=== PATIENT | male | born 1960 | race Two or more races ===

== ENCOUNTER 2023-07-02 11:12 | Inpatient (IN) | payer MEDICAID, OTHER ==
[~2023-07-02] VITALS: Ht 165.1 cm; Wt 97.5 kg
[2023-07-02] MEDS ORDERED: RISP4TAB73 PO (11:34)
[2023-07-02] MEDS ORDERED: CLON-595 PO (11:34)
[2023-07-02] MEDS ORDERED: BENZ0.5T49 PO (11:34)
[2023-07-02] MEDS ORDERED: AMOX1TAB16 PO (11:34)
[2023-07-02] MEDS ORDERED: SULF-261 PO (11:34)
[2023-07-02] MEDS ORDERED: ATOR20TA PO (11:34)
[2023-07-02] MEDS ORDERED: RISP2TAB86 PO (11:34)
[2023-07-02] MEDS ORDERED: TRAZ-252 PO (11:34)
[2023-07-02 12:52] LABS: BASOPHILS % (AUTO) 0.6 % (0.0-2.0); EOSINOPHILS % (AUTO) 1.6 % (1.0-6.0); HEMATOCRIT 45.1 % (41-53); HEMOGLOBIN 15.3 g/dL (13.5-17.5); LYMPHOCYTES # (AUTO) 1.1 K/uL (1.0-4.8); LYMPHOCYTES % (AUTO) 15.3 % (22.0-44.0); MEAN CORPUSCULAR HEMOGLOBIN 28.2 pg (26.0-34.0); MEAN CORPUSCULAR VOLUME 83 fL (80-100); MONOCYTES # (AUTO) 0.5 K/uL (0.1-1.0); MONOCYTES % (AUTO) 7.2 % (2.0-9.0); NEUTROPHILS # (AUTO) 5.4 K/uL (1.8-7.7); NEUTROPHILS % (AUTO) 75.3 % (40.0-70.0); PLATELET COUNT (AUTO) 187 K/uL (150-450); RED BLOOD CELL COUNT(AUTO) 5.45 MIL/uL (4.50-5.90); RED CELL DISTRIBUTION WIDTH 14.5 % (11.5-14.5)
[2023-07-02 13:00] LABS: ANION GAP 13 mmol/L (8-16); CARBON DIOXIDE 22 mmol/L (22-29); CHLORIDE 103 mmol/L (98-107); CREATININE 1.06 mg/dL (0.60-1.30); GLOMERULAR FILTR. RATE CALC > 60 mL/min (>60); GLUCOSE,RANDOM 112 mg/dL (70-110); POTASSIUM 4.4 mmol/L (3.5-5.1); SODIUM SERUM 138 mmol/L (136-145)
[2023-07-02 13:06] LABS: ALANINE AMINOTRANSFERASE 33 U/L (12-78); ALBUMIN 3.7 g/dL (3.4-5.0); ALKALINE PHOSPHATASE 82 U/L (46-116); ASPARTATE AMINOTRANSFERASE 32 U/L (15-37); BILIRUBIN,TOTAL 0.6 mg/dL (0.1-1.0); TOTAL PROTEIN, SERUM 7.6 g/dL (6.4-8.2)
[2023-07-02 14:35] LABS: COVID AG,FIA SOURCE NASAL SWAB
[2023-07-02] MEDS ORDERED: ZOLPIDEM TARTRATE 10 MG TABLET PO PRN (15:30)
[2023-07-02] MEDS: LORazepam 2 MG TABLET PO PRN (21:32)
[2023-07-02] MEDS: HALOPERIDOL 5 MG TABLET PO PRN (21:33)
[2023-07-02 22:58] VITALS: BP 125/61; PULSE 79; RESP 19; TEMP 97.8; O2SAT 100
[2023-07-03] MEDS ORDERED: MAGNESIUM HYDROXIDE SUSPENSION 30 ML UDCUP PO PRN (07:30)
[2023-07-03] MEDS ORDERED: ALBUTEROL SULFATE HFA 90 MCG/PUFF 8 GM INHALER IH PRN (07:30)
[2023-07-03] MEDS ORDERED: PETROLATUM,WHITE 28 GM JELLY TP PRN (07:30)
[2023-07-03] MEDS ORDERED: NICOTINE 14 MG/24 HOUR PATCH TD PRN (07:30)
[2023-07-03] MEDS ORDERED: GuaiFENesin/D-METHORPHAN [SUGAR-FREE] 200-20MG/10 ML SYRUP UDCUP PO PRN (07:30)
[2023-07-03] MEDS ORDERED: ONDANSETRON HCL 4 MG TABLET PO PRN (07:30)
[2023-07-03] MEDS ORDERED: DOCUSATE SODIUM 100 MG CAPSULE PO PRN (07:30)
[2023-07-03] MEDS ORDERED: LOPERAMIDE HCL 2 MG CAPSULE PO PRN (07:30)
[2023-07-03] MEDS ORDERED: ACETAMINOPHEN 325 MG TABLET PO PRN (07:30)
[2023-07-03] MEDS ORDERED: MAG HYDROX/AL HYDROX/SIMETH ES 30 ML SUSPENSION UDCUP PO PRN (07:30)
[2023-07-03] MEDS ORDERED: CloNIDine HCL 0.1 MG TABLET PO PRN (07:30)
[2023-07-03] MEDS ORDERED: IBUPROFEN 400 MG TABLET PO PRN (07:30)
[2023-07-03] MEDS: BACITRACIN 28 GM OINTMENT TP SCH ×2 (08:56→16:18)
[2023-07-03 09:33] VITALS: BP 133/79; PULSE 72; RESP 18; TEMP 97.6
[2023-07-03] MEDS: RisperiDONE 1 MG TABLET PO SCH (16:19)
[2023-07-03] MEDS: TraZODone HCL 100 MG TABLET PO SCH (21:43)
[2023-07-03] MEDS: ATORVASTATIN CALCIUM 20 MG TABLET PO SCH (21:43)
[2023-07-03 22:55] VITALS: BP 123/73; PULSE 60; RESP 18; TEMP 97.7; O2SAT 95
[2023-07-04 08:56] LABS: HEMOGLOBIN A1C 6.1 % (3.8-5.6)
[2023-07-04] MEDS: BACITRACIN 28 GM OINTMENT TP SCH ×2 (09:00→16:31)
[2023-07-04 09:10] LABS: THYROID STIMULATING HORMONE 1.8 uIU/mL (0.36-3.74)
[2023-07-04 09:23] VITALS: BP 127/83; PULSE 55; RESP 18; TEMP 96.9; O2SAT 99
[2023-07-04] MEDS: RisperiDONE 1 MG TABLET PO SCH ×2 (10:18→16:31)
[2023-07-04] MEDS: BENZTROPINE MESYLATE 0.5 MG TABLET PO SCH (10:18)
[2023-07-04 20:18] VITALS: BP 141/85; PULSE 65; RESP 18; TEMP 97.6; O2SAT 96
[2023-07-04] MEDS: TraZODone HCL 100 MG TABLET PO SCH (20:54)
[2023-07-04] MEDS: ATORVASTATIN CALCIUM 20 MG TABLET PO SCH (20:54)
[2023-07-05] MEDS: RisperiDONE 1 MG TABLET PO SCH ×2 (08:45→16:17)
[2023-07-05] MEDS: BENZTROPINE MESYLATE 0.5 MG TABLET PO SCH (08:45)
[2023-07-05] MEDS: BACITRACIN 28 GM OINTMENT TP SCH ×2 (08:45→16:17)
[2023-07-05 09:34] VITALS: BP 150/86; PULSE 75; RESP 18; TEMP 97.7; O2SAT 97
[2023-07-05] MEDS: TraZODone HCL 100 MG TABLET PO SCH (21:00)
[2023-07-05] MEDS: ATORVASTATIN CALCIUM 20 MG TABLET PO SCH (21:00)
[2023-07-05 22:48] VITALS: BP 123/71; PULSE 68; RESP 18; TEMP 97.7; O2SAT 98
[2023-07-06] MEDS: RisperiDONE 1 MG TABLET PO SCH ×2 (08:18→17:42)
[2023-07-06] MEDS: BENZTROPINE MESYLATE 0.5 MG TABLET PO SCH (08:18)
[2023-07-06] MEDS: BACITRACIN 28 GM OINTMENT TP SCH ×2 (09:00→17:00)
[2023-07-06 09:36] VITALS: BP 132/62; PULSE 59; RESP 18; TEMP 97.6; O2SAT 98
[2023-07-06] MEDS: ATORVASTATIN CALCIUM 20 MG TABLET PO SCH (21:20)
[2023-07-06] MEDS: TraZODone HCL 100 MG TABLET PO SCH (21:20)
[2023-07-06 22:11] VITALS: BP 116/74; PULSE 60; RESP 19; TEMP 97.2; O2SAT 98
[2023-07-07] MEDS: BACITRACIN 28 GM OINTMENT TP SCH ×2 (08:29→16:07)
[2023-07-07] MEDS: BENZTROPINE MESYLATE 0.5 MG TABLET PO SCH (08:29)
[2023-07-07] MEDS: RisperiDONE 1 MG TABLET PO SCH ×2 (08:29→16:07)
[2023-07-07 09:40] VITALS: BP 101/72; PULSE 79; RESP 16; TEMP 97.9; O2SAT 97
[2023-07-07] MEDS: SERTRALINE HCL 50 MG TABLET PO SCH (12:30)
[2023-07-07 20:14] VITALS: BP 105/74; PULSE 98; RESP 18; TEMP 97.9; O2SAT 98
[2023-07-07] MEDS: ATORVASTATIN CALCIUM 20 MG TABLET PO SCH (20:52)
[2023-07-07] MEDS: TraZODone HCL 100 MG TABLET PO SCH (20:52)
[2023-07-08 08:00] VITALS: BP 119/68; PULSE 56; RESP 18; TEMP 96.9
[2023-07-08] MEDS: RisperiDONE 1 MG TABLET PO SCH ×2 (11:01→18:00)
[2023-07-08] MEDS: SERTRALINE HCL 50 MG TABLET PO SCH (11:01)
[2023-07-08] MEDS: BENZTROPINE MESYLATE 0.5 MG TABLET PO SCH (11:01)
[2023-07-08] MEDS: BACITRACIN 28 GM OINTMENT TP SCH ×2 (11:02→18:00)
[2023-07-08 20:57] VITALS: BP 128/72; PULSE 82; RESP 18; TEMP 97.1; O2SAT 97
[2023-07-08] MEDS: ATORVASTATIN CALCIUM 20 MG TABLET PO SCH (21:14)
[2023-07-08] MEDS: TraZODone HCL 100 MG TABLET PO SCH (21:15)
[2023-07-09] MEDS: SERTRALINE HCL 50 MG TABLET PO SCH (10:06)
[2023-07-09] MEDS: BACITRACIN 28 GM OINTMENT TP SCH ×2 (10:06→18:05)
[2023-07-09] MEDS: RisperiDONE 1 MG TABLET PO SCH ×2 (10:06→18:05)
[2023-07-09] MEDS: BENZTROPINE MESYLATE 0.5 MG TABLET PO SCH (10:06)
[2023-07-09 11:37] VITALS: BP 128/60; PULSE 80; RESP 17; TEMP 97.8; O2SAT 99
[2023-07-09] MEDS: ATORVASTATIN CALCIUM 20 MG TABLET PO SCH (20:44)
[2023-07-09] MEDS: TraZODone HCL 100 MG TABLET PO SCH (20:44)
[2023-07-09 21:45] VITALS: BP 130/77; RESP 20; TEMP 98.1
[2023-07-10 08:40] VITALS: BP 134/74; PULSE 67; RESP 18; TEMP 97.4
[2023-07-10] MEDS: SERTRALINE HCL 50 MG TABLET PO SCH (08:54)
[2023-07-10] MEDS: BACITRACIN 28 GM OINTMENT TP SCH ×2 (08:54→16:34)
[2023-07-10] MEDS: BENZTROPINE MESYLATE 0.5 MG TABLET PO SCH (08:54)
[2023-07-10] MEDS: RisperiDONE 1 MG TABLET PO SCH ×2 (08:54→16:34)
[2023-07-10] MEDS: LORazepam 2 MG TABLET PO PRN (19:45)
[2023-07-10] MEDS: HALOPERIDOL 5 MG TABLET PO PRN (19:45)
[2023-07-10] MEDS: ATORVASTATIN CALCIUM 20 MG TABLET PO SCH (20:20)
[2023-07-10] MEDS: TraZODone HCL 100 MG TABLET PO SCH (20:20)
[2023-07-10 22:28] VITALS: BP 119/72; PULSE 52; RESP 18; TEMP 98.4
[2023-07-11 09:06] VITALS: BP 149/67; PULSE 75; RESP 18; TEMP 98; O2SAT 97
[2023-07-11] MEDS: RisperiDONE 1 MG TABLET PO SCH ×2 (09:40→16:26)
[2023-07-11] MEDS: BENZTROPINE MESYLATE 0.5 MG TABLET PO SCH (09:40)
[2023-07-11] MEDS: SERTRALINE HCL 50 MG TABLET PO SCH (09:40)
[2023-07-11] MEDS: BACITRACIN 28 GM OINTMENT TP SCH ×2 (09:40→16:26)
[2023-07-11] MEDS: TraZODone HCL 100 MG TABLET PO SCH (20:51)
[2023-07-11] MEDS: ATORVASTATIN CALCIUM 20 MG TABLET PO SCH (20:51)
[2023-07-11 21:00] VITALS: BP 128/94; PULSE 91; RESP 18; TEMP 98.2; O2SAT 95
[2023-07-12] MEDS: SERTRALINE HCL 50 MG TABLET PO SCH (08:38)
[2023-07-12] MEDS: RisperiDONE 1 MG TABLET PO SCH ×2 (08:38→16:25)
[2023-07-12] MEDS: BENZTROPINE MESYLATE 0.5 MG TABLET PO SCH (08:38)
[2023-07-12] MEDS: BACITRACIN 28 GM OINTMENT TP SCH ×2 (08:38→16:25)
[2023-07-12 09:27] VITALS: BP 118/74; PULSE 61; RESP 18; TEMP 97.5; O2SAT 95
[2023-07-12] MEDS ORDERED: TRAZ-257 PO (13:24)
[2023-07-12] MEDS ORDERED: SERT-158 PO (13:24)
[2023-07-12] MEDS ORDERED: ATOR20TA PO (13:24)
[2023-07-12] MEDS ORDERED: RISP1TAB98 PO (13:24)
== END 2023-07-12 17:20 | disposition home or self-care (01) | DRG 750 ==
LOC: EMS 11:14 → 3EI 18:09
PROVIDERS: ADMIT Psychiatry & Neurology Child & Adolescent Psychiatry; ATTEND Psychiatry & Neurology Child & Adolescent Psychiatry
DX: F25.0 Schizoaffective disorder, bipolar type (principal); F03.90 Unspecified dementia, unspecified severity, without behavioral disturbance, psychotic disturbance, mood disturbance, and anxiety; E78.00 Pure hypercholesterolemia, unspecified; Z20.822 Contact with and (suspected) exposure to COVID-19; G47.00 Insomnia, unspecified; R73.03 Prediabetes; F31.9 Bipolar disorder, unspecified; Z79.899 Other long term (current) drug therapy
CPT/HCPCS: 80053; 80061; 83036; 84443; 85025; 99285; G0480

== ENCOUNTER 2023-09-30 16:59 | Inpatient (IN) | payer MEDICAID ==
[~2023-09-30] VITALS: Ht 195.6 cm; Wt 90.3 kg
[~2023-09-30 16:59] MED LIST: ACET-2247 PO; ASPI81TA87 PO; BENZ2TAB71 PO; HALO5VIA16 IM; OLAN5TAB52 PO; PANT-31 PO; RISP2TAB45 PO; SERT-158 PO
[2023-09-30] MEDS ORDERED: LORazepam 2 MG TABLET PO PRN (19:00)
[2023-09-30] MEDS ORDERED: HALOPERIDOL 5 MG TABLET PO PRN (19:00)
[2023-09-30] MEDS: OLANZapine 5 MG TABLET PO SCH (21:00)
[2023-09-30 21:48] VITALS: BP 139/66; PULSE 61; RESP 18; TEMP 98.3
[2023-09-30] MEDS ORDERED: INFLUENZA VIRUS VACCINE QVS 2023-24 (6MO+)/PF 60 MCG/0.5 ML SYRINGE IM. ONE (22:45)
[2023-09-30] MEDS ORDERED: PNEUMOCOCCAL VACCINE POLYVALENT 0.5 ML SYRINGE [PPSV23] IM. ONE (22:45)
[2023-10-01 10:07] VITALS: BP 120/54; PULSE 86; RESP 18; TEMP 97.8
[2023-10-01] MEDS: ASPIRIN 81 MG CHEWABLE TABLET PO SCH (15:37)
[2023-10-01] MEDS: PANTOPRAZOLE SODIUM 40 MG DR TABLET PO SCH (15:37)
[2023-10-01 20:54] VITALS: BP 131/75; PULSE 74; RESP 18; TEMP 97.8
[2023-10-01] MEDS: OLANZapine 5 MG TABLET PO SCH (20:56)
[2023-10-02 09:16] VITALS: BP 134/61; PULSE 50; RESP 16; TEMP 98.8
[2023-10-02] MEDS: ASPIRIN 81 MG CHEWABLE TABLET PO SCH (09:23)
[2023-10-02] MEDS: PANTOPRAZOLE SODIUM 40 MG DR TABLET PO SCH (09:23)
[2023-10-02] MEDS ORDERED: TRAZ-257 PO (12:26)
[2023-10-02] MEDS ORDERED: BENZ2TAB71 PO (12:26)
[2023-10-02] MEDS ORDERED: SERT-439 PO (12:26)
[2023-10-02] MEDS ORDERED: ATOR20TA65 PO (12:26)
[2023-10-02] MEDS ORDERED: RISP2TAB45 PO (12:26)
[2023-10-02] MEDS ORDERED: ACETAMINOPHEN 325 MG TABLET PO PRN (14:45)
[2023-10-02] MEDS ORDERED: MAG HYDROX/ALUMINUM HYD/SIMETH ES 30 ML SUSPENSION UDCUP PO PRN (14:45)
[2023-10-02] MEDS ORDERED: PETROLATUM,WHITE 28 GM JELLY TP PRN (14:45)
[2023-10-02] MEDS ORDERED: ALBUTEROL SULFATE HFA 90 MCG/PUFF 8 GM INHALER IH PRN (14:45)
[2023-10-02] MEDS ORDERED: DOCUSATE SODIUM 100 MG CAPSULE PO PRN (14:45)
[2023-10-02] MEDS ORDERED: MAGNESIUM HYDROXIDE SUSPENSION 30 ML UDCUP PO PRN (14:45)
[2023-10-02] MEDS ORDERED: ONDANSETRON HCL 4 MG TABLET PO PRN (14:45)
[2023-10-02] MEDS ORDERED: IBUPROFEN 400 MG TABLET PO PRN (14:45)
[2023-10-02] MEDS ORDERED: GuaiFENesin/D-METHORPHAN [SUGAR-FREE] 200-20MG/10 ML SYRUP UDCUP PO PRN (14:45)
[2023-10-02] MEDS ORDERED: NICOTINE 14 MG/24 HOUR PATCH TD PRN (14:45)
[2023-10-02] MEDS ORDERED: LOPERAMIDE HCL 2 MG CAPSULE PO PRN (14:45)
[2023-10-02] MEDS ORDERED: CloNIDine HCL 0.1 MG TABLET PO PRN (14:45)
[2023-10-02] MEDS: MEMANTINE HCL 10 MG TABLET PO SCH (17:09)
[2023-10-02 21:11] VITALS: BP 133/72; PULSE 63; RESP 18; TEMP 98.2
[2023-10-02] MEDS: OLANZapine 5 MG TABLET PO SCH (21:20)
[2023-10-02] MEDS: ATORVASTATIN CALCIUM 20 MG TABLET PO SCH (21:21)
[2023-10-03] MEDS: PANTOPRAZOLE SODIUM 40 MG DR TABLET PO SCH (08:47)
[2023-10-03] MEDS: ASPIRIN 81 MG DR TABLET PO SCH (08:47)
[2023-10-03] MEDS: MEMANTINE HCL 10 MG TABLET PO SCH ×2 (08:48→16:40)
[2023-10-03 09:45] VITALS: BP 121/60; PULSE 83; RESP 18; TEMP 97.7
[2023-10-03] MEDS: ATORVASTATIN CALCIUM 20 MG TABLET PO SCH (20:35)
[2023-10-03] MEDS: OLANZapine 5 MG TABLET PO SCH (20:35)
[2023-10-03 22:01] VITALS: BP 123/94; PULSE 68; RESP 17; TEMP 97.1
[2023-10-04] MEDS: MEMANTINE HCL 10 MG TABLET PO SCH ×2 (09:26→17:23)
[2023-10-04] MEDS: ASPIRIN 81 MG DR TABLET PO SCH (09:26)
[2023-10-04] MEDS: PANTOPRAZOLE SODIUM 40 MG DR TABLET PO SCH (09:26)
[2023-10-04 09:35] VITALS: RESP 18
[2023-10-04] MEDS: ATORVASTATIN CALCIUM 20 MG TABLET PO SCH (20:35)
[2023-10-04] MEDS: OLANZapine 5 MG TABLET PO SCH (20:35)
[2023-10-04 22:11] VITALS: BP 135/90; PULSE 69; RESP 18; TEMP 97.8
[2023-10-05 07:37] LABS: HEMOGLOBIN A1C 6.3 % (3.8-5.6)
[2023-10-05 07:43] LABS: CHOL/HDL RATIO 3.5 (4.2-7.3)
[2023-10-05] MEDS: PANTOPRAZOLE SODIUM 40 MG DR TABLET PO SCH (09:35)
[2023-10-05] MEDS: ASPIRIN 81 MG DR TABLET PO SCH (09:35)
[2023-10-05] MEDS: MEMANTINE HCL 10 MG TABLET PO SCH ×2 (09:35→16:41)
[2023-10-05 13:11] VITALS: BP 122/57; PULSE 56; RESP 18; TEMP 97.6
[2023-10-05] MEDS: OLANZapine 5 MG TABLET PO SCH (20:19)
[2023-10-05] MEDS: ATORVASTATIN CALCIUM 20 MG TABLET PO SCH (20:19)
[2023-10-05 21:08] VITALS: BP 140/93; PULSE 62; RESP 19; TEMP 97.3
[2023-10-06 09:19] VITALS: BP 133/71; PULSE 59; RESP 18; TEMP 97.6
[2023-10-06] MEDS: PANTOPRAZOLE SODIUM 40 MG DR TABLET PO SCH (09:26)
[2023-10-06] MEDS: MEMANTINE HCL 10 MG TABLET PO SCH ×2 (09:26→16:30)
[2023-10-06] MEDS: ASPIRIN 81 MG DR TABLET PO SCH (09:26)
[2023-10-06] MEDS: ATORVASTATIN CALCIUM 20 MG TABLET PO SCH (20:52)
[2023-10-06] MEDS: OLANZapine 5 MG TABLET PO SCH (20:52)
[2023-10-06] MEDS: ZOLPIDEM TARTRATE 10 MG TABLET PO PRN (20:52)
[2023-10-06 21:22] VITALS: BP 140/83; PULSE 76; RESP 17; TEMP 97.9
[2023-10-07 08:05] VITALS: BP 149/76; PULSE 62; RESP 18; TEMP 96.8
[2023-10-07] MEDS: MEMANTINE HCL 10 MG TABLET PO SCH ×2 (10:03→17:26)
[2023-10-07] MEDS: ASPIRIN 81 MG DR TABLET PO SCH (10:03)
[2023-10-07] MEDS: PANTOPRAZOLE SODIUM 40 MG DR TABLET PO SCH (10:04)
[2023-10-07 21:13] VITALS: BP 129/92; PULSE 63; RESP 18; TEMP 96.7
[2023-10-07] MEDS: ZOLPIDEM TARTRATE 10 MG TABLET PO PRN (21:18)
[2023-10-07] MEDS: ATORVASTATIN CALCIUM 20 MG TABLET PO SCH (21:18)
[2023-10-07] MEDS: OLANZapine 5 MG TABLET PO SCH (21:18)
[2023-10-08] MEDS: MEMANTINE HCL 10 MG TABLET PO SCH ×2 (08:45→16:25)
[2023-10-08] MEDS: ASPIRIN 81 MG DR TABLET PO SCH (08:46)
[2023-10-08] MEDS: PANTOPRAZOLE SODIUM 40 MG DR TABLET PO SCH (08:49)
[2023-10-08 09:45] VITALS: BP 122/71; PULSE 60; RESP 18; TEMP 98.1
[2023-10-08 17:06] LABS: GLUCOMETER DEV NAME(LOC) 3E.C; GLUCOSE,POINT OF CARE 116 MG/DL (70-110)
[2023-10-08 20:27] VITALS: BP 127/74; PULSE 60; RESP 18; TEMP 98.2
[2023-10-08] MEDS: ATORVASTATIN CALCIUM 20 MG TABLET PO SCH (21:10)
[2023-10-08] MEDS: OLANZapine 5 MG TABLET PO SCH (21:10)
[2023-10-08] MEDS: ZOLPIDEM TARTRATE 10 MG TABLET PO PRN (21:10)
[2023-10-09 05:31] LABS: GLUCOMETER DEV NAME(LOC) 3E.C; GLUCOSE,POINT OF CARE 102 MG/DL (70-110)
[2023-10-09 09:31] VITALS: BP 133/86; PULSE 56; RESP 20; TEMP 97.5
[2023-10-09] MEDS ORDERED: MEMA10TA11 PO (10:11)
[2023-10-09] MEDS: MULTIVITAMINS WITH MINERALS, THERAPEUTIC TABLET PO SCH (10:45)
[2023-10-09] MEDS: ASPIRIN 81 MG DR TABLET PO SCH (10:45)
[2023-10-09] MEDS: MEMANTINE HCL 10 MG TABLET PO SCH ×2 (10:46→16:46)
[2023-10-09] MEDS: PANTOPRAZOLE SODIUM 40 MG DR TABLET PO SCH (10:47)
[2023-10-09 16:31] LABS: GLUCOMETER DEV NAME(LOC) 3E.C; GLUCOSE,POINT OF CARE 102 MG/DL (70-110)
[2023-10-09 20:55] VITALS: BP 113/70; PULSE 60; RESP 17; TEMP 97.6
[2023-10-09] MEDS: ATORVASTATIN CALCIUM 20 MG TABLET PO SCH (21:50)
[2023-10-09] MEDS: OLANZapine 5 MG TABLET PO SCH (21:50)
[2023-10-09 22:35] VITALS: BP 126/88; PULSE 67; RESP 16; TEMP 97.3
[2023-10-10 05:46] LABS: GLUCOMETER DEV NAME(LOC) 3E.C; GLUCOSE,POINT OF CARE 106 MG/DL (70-110)
[2023-10-10 09:11] VITALS: BP 145/85; PULSE 85; RESP 18; TEMP 97.6
[2023-10-10] MEDS: MEMANTINE HCL 10 MG TABLET PO SCH ×2 (09:37→17:35)
[2023-10-10] MEDS: MULTIVITAMINS WITH MINERALS, THERAPEUTIC TABLET PO SCH (09:38)
[2023-10-10] MEDS: PANTOPRAZOLE SODIUM 40 MG DR TABLET PO SCH (09:38)
[2023-10-10] MEDS: ASPIRIN 81 MG DR TABLET PO SCH (09:38)
[2023-10-10 17:32] LABS: GLUCOMETER DEV NAME(LOC) 3E.C; GLUCOSE,POINT OF CARE 113 MG/DL (70-110)
[2023-10-10] MEDS: ATORVASTATIN CALCIUM 20 MG TABLET PO SCH (20:43)
[2023-10-10] MEDS: OLANZapine 5 MG TABLET PO SCH (20:43)
[2023-10-10 23:01] VITALS: BP 134/82; PULSE 82; RESP 18; TEMP 97.8
[2023-10-11 06:56] LABS: GLUCOMETER DEV NAME(LOC) 3E.C; GLUCOSE,POINT OF CARE 95 MG/DL (70-110)
[2023-10-11 09:30] VITALS: BP 140/80; PULSE 86; RESP 17; TEMP 97.7
[2023-10-11] MEDS: PANTOPRAZOLE SODIUM 40 MG DR TABLET PO SCH (11:13)
[2023-10-11] MEDS: MULTIVITAMINS WITH MINERALS, THERAPEUTIC TABLET PO SCH (11:13)
[2023-10-11] MEDS: ASPIRIN 81 MG DR TABLET PO SCH (11:13)
[2023-10-11] MEDS: MEMANTINE HCL 10 MG TABLET PO SCH ×2 (11:14→16:40)
[2023-10-11 17:36] LABS: GLUCOMETER DEV NAME(LOC) 3E.C; GLUCOSE,POINT OF CARE 122 MG/DL (70-110)
[2023-10-11] MEDS: OLANZapine 5 MG TABLET PO SCH (20:26)
[2023-10-11] MEDS: ATORVASTATIN CALCIUM 20 MG TABLET PO SCH (20:27)
[2023-10-11 23:09] VITALS: BP 135/79; PULSE 75; RESP 18; TEMP 97
[2023-10-12 06:41] LABS: GLUCOMETER DEV NAME(LOC) 3E.C; GLUCOSE,POINT OF CARE 96 MG/DL (70-110)
[2023-10-12] MEDS: MULTIVITAMINS WITH MINERALS, THERAPEUTIC TABLET PO SCH (08:24)
[2023-10-12] MEDS: PANTOPRAZOLE SODIUM 40 MG DR TABLET PO SCH (08:24)
[2023-10-12] MEDS: ASPIRIN 81 MG DR TABLET PO SCH (08:24)
[2023-10-12] MEDS: MEMANTINE HCL 10 MG TABLET PO SCH ×2 (08:24→16:08)
[2023-10-12 08:47] VITALS: BP 128/74; PULSE 56; RESP 18; TEMP 97.8
[2023-10-12 17:22] LABS: GLUCOMETER DEV NAME(LOC) 3E.C; GLUCOSE,POINT OF CARE 87 MG/DL (70-110)
[2023-10-12] MEDS: OLANZapine 5 MG TABLET PO SCH (21:11)
[2023-10-12] MEDS: ATORVASTATIN CALCIUM 20 MG TABLET PO SCH (21:11)
[2023-10-12 22:26] VITALS: BP 129/85; PULSE 60; RESP 60; TEMP 98.5
[2023-10-13 06:01] LABS: GLUCOMETER DEV NAME(LOC) 3E.C; GLUCOSE,POINT OF CARE 103 MG/DL (70-110)
[2023-10-13] MEDS: MEMANTINE HCL 10 MG TABLET PO SCH ×2 (08:14→17:22)
[2023-10-13] MEDS: MULTIVITAMINS WITH MINERALS, THERAPEUTIC TABLET PO SCH (08:14)
[2023-10-13] MEDS: ASPIRIN 81 MG DR TABLET PO SCH (08:14)
[2023-10-13] MEDS: PANTOPRAZOLE SODIUM 40 MG DR TABLET PO SCH (08:14)
[2023-10-13 11:10] VITALS: BP 124/66; PULSE 61; RESP 18; TEMP 97
[2023-10-13 18:01] LABS: GLUCOMETER DEV NAME(LOC) 3E.C; GLUCOSE,POINT OF CARE 142 MG/DL (70-110)
[2023-10-13 20:31] VITALS: BP 134/94; PULSE 62; RESP 18; TEMP 97.7
[2023-10-13] MEDS: OLANZapine 5 MG TABLET PO SCH (21:28)
[2023-10-13] MEDS: ATORVASTATIN CALCIUM 20 MG TABLET PO SCH (21:28)
[2023-10-13] MEDS: ZOLPIDEM TARTRATE 10 MG TABLET PO PRN (21:29)
[2023-10-14 06:31] LABS: GLUCOMETER DEV NAME(LOC) 3E.C; GLUCOSE,POINT OF CARE 106 MG/DL (70-110)
[2023-10-14 08:00] VITALS: BP 133/79; PULSE 60; RESP 18
[2023-10-14] MEDS: PANTOPRAZOLE SODIUM 40 MG DR TABLET PO SCH (08:19)
[2023-10-14] MEDS: MULTIVITAMINS WITH MINERALS, THERAPEUTIC TABLET PO SCH (08:19)
[2023-10-14] MEDS: ASPIRIN 81 MG DR TABLET PO SCH (08:19)
[2023-10-14] MEDS: MEMANTINE HCL 10 MG TABLET PO SCH ×2 (08:19→17:28)
[2023-10-14 16:46] LABS: GLUCOMETER DEV NAME(LOC) 3E.C; GLUCOSE,POINT OF CARE 136 MG/DL (70-110)
[2023-10-14 20:30] VITALS: BP 110/72; PULSE 60; RESP 20; TEMP 97.8
[2023-10-14] MEDS: ATORVASTATIN CALCIUM 20 MG TABLET PO SCH (21:16)
[2023-10-14] MEDS: OLANZapine 5 MG TABLET PO SCH (21:17)
[2023-10-15 07:16] LABS: GLUCOMETER DEV NAME(LOC) 3E.C; GLUCOSE,POINT OF CARE 107 MG/DL (70-110)
[2023-10-15 09:36] VITALS: BP 146/75; PULSE 62; RESP 18; TEMP 97.5
[2023-10-15] MEDS: ASPIRIN 81 MG DR TABLET PO SCH (11:12)
[2023-10-15] MEDS: MEMANTINE HCL 10 MG TABLET PO SCH ×2 (11:13→16:01)
[2023-10-15] MEDS: PANTOPRAZOLE SODIUM 40 MG DR TABLET PO SCH (11:13)
[2023-10-15] MEDS: MULTIVITAMINS WITH MINERALS, THERAPEUTIC TABLET PO SCH (11:14)
[2023-10-15 17:11] LABS: GLUCOMETER DEV NAME(LOC) 3E.C; GLUCOSE,POINT OF CARE 101 MG/DL (70-110)
== END 2023-10-15 18:30 | disposition home or self-care (01) | DRG 750 ==
LOC: 3EI 21:05
PROVIDERS: ADMIT Psychiatry & Neurology Psychiatry; ATTEND Psychiatry & Neurology Psychiatry
DX: F20.9 Schizophrenia, unspecified (principal); F03.90 Unspecified dementia, unspecified severity, without behavioral disturbance, psychotic disturbance, mood disturbance, and anxiety; E78.5 Hyperlipidemia, unspecified; R73.9 Hyperglycemia, unspecified; F41.9 Anxiety disorder, unspecified; Z79.82 Long term (current) use of aspirin; Z79.899 Other long term (current) drug therapy
CPT/HCPCS: 80061; 82962; 83036; 87070; 87081; 87205

== ENCOUNTER 2023-12-02 18:02 | Emergency (ER) | payer MEDICAID, OTHER ==
[~2023-12-02] VITALS: Ht 172.7 cm; Wt 88.2 kg
[~2023-12-02 18:02] MED LIST changes: -ACET-2247 PO; +ATOR20TA65 PO; -BENZ2TAB71 PO; -HALO5VIA16 IM; +MEMA10TA11 PO; -RISP2TAB45 PO; -SERT-158 PO
[2023-12-02 18:37] VITALS: BP 108/48; PULSE 70; RESP 16; TEMP 97.7
[2023-12-02 19:08] LABS: ANION GAP 13 mmol/L (8-16); BASOPHILS % (AUTO) 0.3 % (0.0-2.0); CALCIUM, TOTAL 9.4 mg/dL (8.8-10.5); CARBON DIOXIDE 26 mmol/L (22-29); CHLORIDE 103 mmol/L (98-107); CREATININE 0.91 mg/dL (0.60-1.30); EOSINOPHILS % (AUTO) 0.5 % (1.0-6.0); GLOMERULAR FILTR. RATE CALC > 60 mL/min (>60); GLUCOSE,RANDOM 120 mg/dL (70-110); LYMPHOCYTES % (AUTO) 9.1 % (22.0-44.0); MEAN CORPUSCULAR HEMOGLOBIN 28.8 pg (26.0-34.0); MEAN CORPUSCULAR HGB CONC 34.1 G/dL (31.0-37.0); MEAN CORPUSCULAR VOLUME 84 fL (80-100); MONOCYTES # (AUTO) 0.6 K/uL (0.1-1.0); MONOCYTES % (AUTO) 5.9 % (2.0-9.0); NEUTROPHILS # (AUTO) 9.2 K/uL (1.8-7.7); NEUTROPHILS % (AUTO) 84.2 % (40.0-70.0); PLATELET COUNT (AUTO) 214 K/uL (150-450); POTASSIUM 4.1 mmol/L (3.5-5.1); RED BLOOD CELL COUNT(AUTO) 5.22 MIL/uL (4.50-5.90); RED CELL DISTRIBUTION WIDTH 14.8 % (11.5-14.5); SODIUM SERUM 142 mmol/L (136-145); UREA NITROGEN, BLOOD 10 mg/dL (7-18); WHITE BLOOD COUNT (AUTO) 10.9 K/uL (4.5-11.0)
[2023-12-02 19:11] LABS: INR 1.1 (0.9-1.1); PROTHROMBIN TIME 11.9 SEC (9.4-11.6)
[2023-12-02 19:14] LABS: ALANINE AMINOTRANSFERASE 30 U/L (12-78); ALBUMIN 3.9 g/dL (3.4-5.0); ALKALINE PHOSPHATASE 105 U/L (46-116); ASPARTATE AMINOTRANSFERASE 27 U/L (15-37); BILIRUBIN,TOTAL 0.7 mg/dL (0.1-1.0); LIPASE 20 U/L (16-77); TOTAL PROTEIN, SERUM 8.3 g/dL (6.4-8.2)
[2023-12-02 19:19] LABS: TROPONIN I-HIGH SENSITIVITY 7 ng/L (<76)
[2023-12-02] MEDS ORDERED: LORazepam 2 MG TABLET PO ONE (22:00)
[2023-12-02] MEDS ORDERED: CLON-595 PO (22:16)
== END 2023-12-02 23:09 | disposition home or self-care (01) ==
LOC: EMS 18:20
DX: F20.9 Schizophrenia, unspecified (principal); F69 Unspecified disorder of adult personality and behavior; F31.9 Bipolar disorder, unspecified; E78.00 Pure hypercholesterolemia, unspecified; Z98.890 Other specified postprocedural states
CPT/HCPCS: 80053; 83690; 84484; 85025; 85610; 99284

== ENCOUNTER 2024-05-13 18:20 | Emergency (ER) | payer OTHER ==
[~2024-05-13] VITALS: Ht 177.8 cm; Wt 90.9 kg
[~2024-05-13 18:20] MED LIST changes: +CLON-595 PO; -MEMA10TA11 PO; +MEMA10TA24 PO
[2024-05-13 18:31] VITALS: TEMP 98.1
[2024-05-13] MEDS ORDERED: SERT-440 PO (18:34)
[2024-05-13] MEDS ORDERED: BENZ2TAB84 PO (18:34)
[2024-05-13] MEDS ORDERED: ASPI-1444 PO (18:34)
[2024-05-13] MEDS ORDERED: SERT-439 PO (18:34)
[2024-05-13] MEDS ORDERED: OLAN5TAB77 PO (18:34)
[2024-05-13] MEDS ORDERED: TRAZ-257 PO (18:34)
[2024-05-13] MEDS ORDERED: MEMA10TA21 PO (18:34)
[2024-05-13 20:30] VITALS: BP 128/73; PULSE 75; RESP 16
[2024-05-13] MEDS ORDERED: POLY119P3 PO (21:22)
[2024-05-13] MEDS ORDERED: LACT10SO10 PO (21:22)
== END 2024-05-13 21:38 | disposition home or self-care (01) ==
LOC: EMS 18:20
DX: K56.41 Fecal impaction (principal)
CPT/HCPCS: 99283; Z7502